=== PATIENT | male | born 1950 | race Caucasian/White ===

== ENCOUNTER → 2017-03-26 | Outpatient (CLI) | payer MEDICARE | END | disposition home or self-care (01) | LOC: PCVCCLINIC 10:31 | PROVIDERS: ATTEND Internal Medicine Cardiovascular Disease | DX: I25.10 Atherosclerotic heart disease of native coronary artery without angina pectoris (principal); I10 Essential (primary) hypertension; E78.5 Hyperlipidemia, unspecified; J44.9 Chronic obstructive pulmonary disease, unspecified; C85.10 Unspecified B-cell lymphoma, unspecified site; I71.4 Abdominal aortic aneurysm, without rupture; R09.89 Other specified symptoms and signs involving the circulatory and respiratory systems; F17.210 Nicotine dependence, cigarettes, uncomplicated; Z79.82 Long term (current) use of aspirin; Z79.899 Other long term (current) drug therapy | CPT/HCPCS: 80061; 93005; G0463 ==

== ENCOUNTER → 2017-05-20 | Outpatient (CLI) | payer MEDICARE ==
--- NOTE | 2017-05-20 09:52 | PCVCIMAG ---
APPROVED REPORT Patient Location: Out-Patient Indications Stenosis Doppler Spectral Velocity Analysis PSV / EDVPSV / EDV ECA (R) 138 / 27 cm/sECA (L) 106 / 19 cm/s dICA (R) 83 / 27 cm/sdICA (L) 73 / 27 cm/s Marissa (R) 92 / 18 cm/smICA (L) 71 / 29 cm/s pICA (R) 112 / 31 cm/spICA (L) 67 / 16 cm/s Bulb (R) 115 / 32 cm/sBulb (L) 74 / 23 cm/s dCCA (R) 74 / 18 cm/sdCCA (L) 78 / 22 cm/s mCCA (R) 77 / 23 cm/smCCA (L) 80 / 23 cm/s Vert (R) 53 / 18 cm/sVert (L) 30 / 8 cm/s ICA/CCA ICA/CCA Findings The right carotid bulb has moderate calcified plaque. The right proximal internal carotid artery shows 40-50% stenosis. The right common carotid artery shows no significant stenosis. The right external carotid artery shows >50% stenosis. The left carotid bulb has moderate calcified plaque. The left proximal internal carotid artery shows <40% stenosis. The left common carotid artery shows <40% stenosis. The left external carotid artery shows no significant stenosis. Conclusion 1. Right internal carotid artery stenosis (40-50%) 2. Left internal carotid artery stenosis (<40%) 3. Antegrade vertebral flow
--- NOTE | 2017-05-20 10:18 | PCVCIMAG ---
EXAM: AORTOILIAC DUPLEX INDICATION: Peripheral arterial disease FINDINGS: AORTA: Suprarenal aorta measures maximum diameter of 2.8 cm. There is a fusiform infrarenal aortic aneurysm. The infrarenal aorta measures maximum diameter of 3.0 cm. No aortic stenosis. RIGHT COMMON ILIAC ARTERY: Maximum diameter is 1.0 cm. No significant stenosis. RIGHT EXTERNAL ILIAC ARTERY: No significant stenosis. LEFT COMMON ILIAC ARTERY: Maximum diameter is 1.0 cm. No significant stenosis. LEFT EXTERNAL ILIAC ARTERY: No significant stenosis. IMPRESSION: 3.0 cm infrarenal abdominal aortic aneurysm. LOC:[id number]
--- NOTE | 2017-05-20 15:59 | PCVCIMAG ---
APPROVED REPORT Exam: Stress Echocardiogram Indication: CAD , Dyspnea , Hyperlipidemia, Hypertension,tobacco use Patient Location: Echo lab Stress Nurse: Hiral Garcia RN Room #: 2 Status: routine Ht: 5 ft 7 in HR: 67 bpm BP: 142/74 mmHg Rhythm: NSR Medical History Medical History: CAD s/p PTCA,, COPD, HTN, Tobacco history (Current/Recent), Hyperlipidemia Cardiac Risk Factors: HTN, Tobacco History (Current/Recent) Pretest Chest Pain Characteristics: No chest pain Procedure The patient underwent an Exercise Stress Test using the Demetrius Protocol. Blood pressure, heart rate, and EKG were monitored. An Echocardiogram was performed by clinical laboratory technician in four stages in quad fashion. At peak stress, four selected images were obtained and placed side by side with resting images for comparison. Stress Test Details Stress Test: Exercise stress testing was performed using a Demetrius protocol. HR Resting HR: 67 bpmMax Heart Rate (APMHR): 151 bpm Max HR Achieved: 106 bpmTarget HR (85% APMHR): 128 bpm % of APMHR: 70 Recovery HR: 66 bpm HR response to stress: Normal HR response to stress BP Resting BP: 142/74 mmHg Max BP: 162/76 mmHg Recovery BP: 124/70 mmHg ECG Resting ECG: Sinus Rhythm Stress ECG: Sinus Rhythm ST Change: Normal Arrhythmia: None Recovery ECG: Sinus Rhythm Recovery ST Change: Normal Recovery Arrhythmia: None Clinical Reason for Termination: leg fatigue,weakness Stress Symptoms: none Exercise duration: 6 min 34 sec Highest Stage Achieved: Stage 3: 3.4 mph at 14% grade. Exercise capacity: 8.7 METs Overall Exercise Capacity for Age: Poor Angina Score: None Stress ECG Conclusion The patient exercised according to the Demetrius Protocol for 6:34 minutes, achieving a maximum work level of 8.7 METS. The resting heart rate of 62 bpm, bal[place] to a maximal level of 107 bpm. This value represents 70 % of the maximal, age-predicted heart rate. The resting blood pressure of 142/74 mmHg, bal[place] to a maximum blood pressure of 162/76 mmHg. The exercise was stopped due to leg fatigue. Pre-Stress Echo The resting Echocardiogram showed normal left ventricular contractility with an estimated Ejection Fraction of about 55-60%. Normal wall motion in all segments on baseline images. Post-Stress Echo The stress Echocardiogram showed normal left ventricular contractility with an estimated Ejection Fraction of about 60-65%. Normal augmentation of wall motion in all segments on post stress images. Clinical No clinical or ECG evidence for ischemia. Conclusion Clinical Response: Non-ischemic Exercise Capacity: Below Average Stress ECG Response: Indeterminant Stress Echo Images: Non-ischemic Submaximal study due to inability of the patient to achieve 85% of maximal HR. Limited predictability with a submaximal heart rate response. <Conclusion> Submaximal study due to inability of the patient to achieve 85% of maximal HR. Limited predictability with a submaximal heart rate response.
== END | disposition home or self-care (01) ==
LOC: PCVCIMAG 08:55
PROVIDERS: ATTEND Internal Medicine Cardiovascular Disease
DX: I71.4 Abdominal aortic aneurysm, without rupture (principal); I73.9 Peripheral vascular disease, unspecified; R09.89 Other specified symptoms and signs involving the circulatory and respiratory systems; I65.23 Occlusion and stenosis of bilateral carotid arteries; I25.119 Atherosclerotic heart disease of native coronary artery with unspecified angina pectoris; J44.9 Chronic obstructive pulmonary disease, unspecified; E78.5 Hyperlipidemia, unspecified; I10 Essential (primary) hypertension; F17.200 Nicotine dependence, unspecified, uncomplicated; Z98.61 Coronary angioplasty status
CPT/HCPCS: 93325; 93351; 93880; 93978

== ENCOUNTER → 2018-02-17 | Outpatient (CLI) | payer MEDICARE | END | disposition home or self-care (01) | LOC: PCVCCLINIC 11:32 | DX: I25.10 Atherosclerotic heart disease of native coronary artery without angina pectoris (principal); I10 Essential (primary) hypertension; E78.00 Pure hypercholesterolemia, unspecified; F17.200 Nicotine dependence, unspecified, uncomplicated; I77.9 Disorder of arteries and arterioles, unspecified; I71.4 Abdominal aortic aneurysm, without rupture; Z88.0 Allergy status to penicillin; Z79.82 Long term (current) use of aspirin | CPT/HCPCS: 80061; 93005; G0463 ==

== ENCOUNTER → 2018-11-15 | Outpatient (CLI) | payer MEDICARE ==
--- NOTE | 2018-11-15 10:33 | PCVCIMAG ---
EXAM: AORTOILIAC DUPLEX INDICATION: Abdominal Aortic Aneurysm. FINDINGS: AORTA: Suprarenal aorta measures maximum diameter of 3.0 cm. There is a fusiform infrarenal aortic aneurysm. The infrarenal aorta measures maximum diameter of 3.2 x 3.6 cm. No aortic stenosis. RIGHT COMMON ILIAC ARTERY: Maximum diameter is 1.4 cm. No significant stenosis. RIGHT EXTERNAL ILIAC ARTERY: No significant stenosis. LEFT COMMON ILIAC ARTERY: Maximum diameter is 1.5 cm. No significant stenosis. LEFT EXTERNAL ILIAC ARTERY: No significant stenosis. IMPRESSION: 3.6 cm abdominal aortic aneurysm compares to 3.0 cm on May 2017 study. No aortoiliac stenosis seen. Interval follow up in 6-12 months is suggested. LOC:[id number]
== END | disposition home or self-care (01) ==
LOC: PCVCIMAG 09:11
PROVIDERS: ATTEND Internal Medicine Cardiovascular Disease
DX: I71.4 Abdominal aortic aneurysm, without rupture (principal); I25.10 Atherosclerotic heart disease of native coronary artery without angina pectoris; C85.10 Unspecified B-cell lymphoma, unspecified site; E78.00 Pure hypercholesterolemia, unspecified; I10 Essential (primary) hypertension; I65.23 Occlusion and stenosis of bilateral carotid arteries; F17.210 Nicotine dependence, cigarettes, uncomplicated
CPT/HCPCS: 93005; 93880; 93978; G0463

== ENCOUNTER → 2019-06-06 | Outpatient (CLI) | payer MEDICARE ==
--- NOTE | 2019-06-06 11:51 | PCVCIMAG ---
APPROVED REPORT Study performed: 06/06/2019 10:23:09 Exam: Stress Echocardiogram Indication: CAD s/p PCI, tobacco use, htn Patient Location: Echo lab Stress Nurse: Hiral Garcia RN Status: routine Ht: 5 ft 7 in HR: 60 bpm BP: 138/80 mmHg Rhythm: NSR Procedure The patient underwent an Exercise Stress Test using the Demetrius Protocol. Blood pressure, heart rate, and EKG were monitored. An Echocardiogram was performed by sow farm technician in four stages in quad fashion. At peak stress, four selected images were obtained and placed side by side with resting images for comparison. Stress Test Details Stress Test: Exercise stress testing was performed using a Demetrius protocol. HR Resting HR: 56 bpmMax Heart Rate (APMHR): 149 bpm Max HR Achieved: 115 bpmTarget HR (85% APMHR): 126 bpm % of APMHR: 77 Recovery HR: 70 bpm HR response to stress: Normal HR response to stress BP Resting BP: 138/80 mmHg Max BP: 160/76 mmHg Recovery BP: 118/70 mmHg BP response to stress: Normal blood pressure response to stress. ECG Resting ECG: Sinus Rhythm Stress ECG: Sinus Rhythm ST Change: Normal Arrhythmia: None Recovery ECG: Sinus Rhythm Recovery ST Change: Normal Recovery Arrhythmia: None Clinical Reason for Termination: Maximal effort Stress Symptoms: Dyspnea, Leg Fatigue Exercise duration: 6 min 17 sec Highest Stage Achieved: Stage 3: 3.4 mph at 14% grade. Exercise capacity: 7.8 METs Overall Exercise Capacity for Age: Normal Scale: Sedentary Angina Score: None Pre-Stress Echo The resting Echocardiogram showed normal left ventricular contractility with an estimated Ejection Fraction of about >55%. The resting echocardiogram demonstrated normal wall motion in all wall segments. Post-Stress Echo The stress Echocardiogram showed normal left ventricular contractility with an estimated Ejection Fraction of about 65%. Compared to rest, there were no stress-induced wall motion abnormalities. Clinical No clinical or ECG evidence for ischemia. Conclusion Clinical Response: Non-ischemic Exercise Capacity: Average Stress ECG Response: Non-ischemic Stress Echo Images: Non-ischemic Non-diagnostic study due to inability of the patient to achieve 85% of maximal HR. Difficult imaging post exercise due to history of tobacco use. The left ventricle is normal in size and wall thickness in both the rest and stress images. Other Information Study Quality: Adequate <Conclusion> Non-diagnostic study due to inability of the patient to achieve 85% of maximal HR. Difficult imaging post exercise due to history of tobacco use. The left ventricle is normal in size and wall thickness in both the rest and stress images.
== END | disposition home or self-care (01) ==
LOC: PCVCIMAG 10:31
PROVIDERS: ATTEND Internal Medicine Cardiovascular Disease
DX: I25.10 Atherosclerotic heart disease of native coronary artery without angina pectoris (principal); E78.5 Hyperlipidemia, unspecified; I10 Essential (primary) hypertension; J44.9 Chronic obstructive pulmonary disease, unspecified; E78.00 Pure hypercholesterolemia, unspecified; Z72.0 Tobacco use; Z88.0 Allergy status to penicillin
CPT/HCPCS: 93325; 93351